=== PATIENT | male | born 1975 | race Hispanic/Latino ===

== ENCOUNTER 2020-08-03 05:28 | Emergency (ER) | payer BC, SELFPAY ==
[2020-08-03] MEDS ORDERED: Ibuprofen 200 MG TAB ONE ×2 (05:58→06:04)
[2020-08-03] MEDS ORDERED: Cyclobenzaprine 10 MG TAB ONE (05:58)
== END 2020-08-03 06:30 | disposition home or self-care (01) ==
LOC: ERS 05:28
DX: M54.5 Low back pain (principal); I10 Essential (primary) hypertension; E78.00 Pure hypercholesterolemia, unspecified
CPT/HCPCS: 99283

== ENCOUNTER 2020-10-21 03:20 | Emergency (ER) | payer SELFPAY ==
[2020-10-21] MEDS ORDERED: Ondansetron PF 4 MG/2 ML Vial ONE (03:46)
[2020-10-21] MEDS ORDERED: Lorazepam 2 MG/ML VIAL ONE ×2 (03:56→05:07)
[2020-10-21 04:09] LABS: Hemoglobin 14.6 g/dL (14.0-18.0); Mean Corpuscular HGB CONC 35.5 g/dL (32.0-36.0); Mean Corpuscular Hemoglobin 35.5 pg (27.0-31.0); RBC Distribution Width 12.2 % (11.5-14.5); Red Blood Cell (RBC) Count 4.12 mill/uL (4.70-6.10); White Blood Cell (WBC) Count 5.5 thou/uL (4.8-10.8)
[2020-10-21 04:27] LABS: ALT (SGPT) 26 U/L (8-55); AST (SGOT) 84 U/L (5-34); Alkaline Phosphatase 64 U/L (40-110); Anion Gap 16 mmol/L (10-20); BUN (Urea Nitrogen) Less than 4 mg/dL (8.9-20.6); Bilirubin, Total 1.1 mg/dL (0.2-1.2); Calc. Creatinine Clearance 0 mL/min (70-130); Calcium 9.2 mg/dL (7.8-10.44); Carbon Dioxide 24 mmol/L (22-29); Chloride 100 mmol/L (98-107); Glucose 110 mg/dL (70-105); Magnesium 1.6 mg/dL (1.6-2.6); Potassium 3.3 mmol/L (3.5-5.1); Sodium 137 mmol/L (136-145)
[2020-10-21 04:35] LABS: #Basophils 0.1 thou/uL (0.0-0.2); #Lymphocytes 1.1 thou/uL (1.20-3.40); #Monocytes 0.5 thou/uL (0.11-0.59); #Neutrophils 3.9 thou/uL (1.40-6.50); %Basophils 1.3 % (0.0-1.0); %Eosinophils 0.5 % (0.0-10.0); %Lymphocytes 19.3 % (21.0-51.0); %Monocytes 8.9 % (0.0-10.0); Giant Platelets SLIGHT; MDiff Complete? YES; Mean Platelet Volume 9.9 fL (7.4-10.4); Platelet Count 93 thou/uL (130-400); Platelet Morphology Comment Appears Decreased
[2020-10-21 05:47] LABS: Bilirubin Negative (Negative); Blood, Urine Negative (Negative); Clarity Clear (Clear); Glucose, Urine (Dipstick) Normal (Negative); Ketone, Urine Negative (Negative); Leukocyte Negative Leu/uL (Negative); Nitrite Negative (Negative); Protein, Urine (Dipstick) Negative (Neg-Trace); Specific Gravity, Urine 1.019 (1.002-1.036); Urobilinogen Normal mg/dL (Less than 2); pH, Urine 6.5 (5.0-9.0)
[2020-10-21] MEDS ORDERED: Iopamidol-370 76% 500 ML 1 ML ONE (10:57)
== END 2020-10-21 10:45 | disposition left against medical advice (07) ==
LOC: ERS 03:20
DX: R33.9 Retention of urine, unspecified (principal); R10.9 Unspecified abdominal pain; R00.0 Tachycardia, unspecified; I10 Essential (primary) hypertension; E78.00 Pure hypercholesterolemia, unspecified
CPT/HCPCS: 74177; 80053; 81003; 83735; 84484; 85025; 93005; 96374; 96376; J2060; J2405; Q9967